=== PATIENT | male | born 1940 | race Caucasian/White ===

== ENCOUNTER → 2018-02-04 | Outpatient (CLI) | payer OTHER ==
[~2018-02-04] MED LIST: ACET-76 PO; AREDS 2 PO; ASPI-496 PO; CALC1CAP8 PO; CYAN50008 PO; MULT-224 PO; OMEP-110 PO; SIMV20TA3 PO; ZOLP5TAB6 PO
[2018-02-04 13:03] LABS: BASOPHILS # (AUTO) 0.02 x10^3/uL (0-0.1); BASOPHILS % (AUTO) 0 % (0-1); EOSINOPHILS # (AUTO) 0.08 x10^3/uL (0-0.4); EOSINOPHILS % (AUTO) 1 % (1-7); LYMPHOCYTES # (AUTO) 1.77 x10^3/uL (1-3.4); LYMPHOCYTES % (AUTO) 28 % (22-44); MD NO; MEAN CORPUSCULAR HEMOGLOBIN 32.2 pg (27.5-34.5); MEAN CORPUSCULAR VOLUME 94.6 fL (81-97); MEAN PLATELET VOLUME 8.7 fL (7.4-10.4); MONOCYTES # (AUTO) 0.76 x10^3/uL (0.2-0.8); MONOCYTES % (AUTO) 12 % (2-9); NEUTROPHILS # (AUTO) 3.81 x10^3/uL (1.8-6.8); NEUTROPHILS % (AUTO) 59 % (42-75); PLATELET COUNT 241 x10^3/uL (130-400); RED BLOOD COUNT 4.43 x10^6/uL (4.38-5.82); RED CELL DISTRIBUTION WIDTH 13.5 % (9.4-14.8)
[2018-02-04 13:09] LABS: INTERNATIONAL NORMALIZED RATIO 1.05 (0.93-1.1); PROTHROMBIN TIME 10.8 Seconds (9.6-11.5)
[2018-02-04 13:13] LABS: ALANINE AMINOTRANSFERASE 23 U/L (12-78); ALBUMIN 3.9 g/dL (3.4-5.0); ANION GAP 10 mmol/L (5-15); CALCIUM 8.8 mg/dL (8.5-10.1); CHLORIDE 108 mmol/L (98-107); CREATININE 1.05 mg/dL (0.7-1.3)
[2018-02-04 13:16] LABS: ALKALINE PHOSPHATASE 62 U/L (45-117); BILIRUBIN,TOTAL 0.8 mg/dL (0.2-1.0); TOTAL PROTEIN 7.8 g/dL (6.4-8.2)
== END ==
LOC: STAR 11:30
PROVIDERS: ATTEND Surgery
DX: Z01.818 Encounter for other preprocedural examination (principal)
CPT/HCPCS: 36415; 80053; 85025; 85610; 93005

== ENCOUNTER 2018-02-17 13:34 | Day surgery (SDC) | payer OTHER ==
[~2018-02-17] VITALS: Ht 172.7 cm; Wt 73.0 kg
[~2018-02-17 13:34] MED LIST changes: +BUPIVACAINE/PF 0.5% ONE; +CEFAZOLIN 1,000 MG ONE; +EPINEPHRINE 1 MG/ML, 1ML ONE
[2018-02-17] MEDS ORDERED: LACTATED RINGERS 1,000 ML IV SCH ×2 (13:55→19:00)
[2018-02-17] MEDS ORDERED: FENTANYL PF 250 MCG/5ML ONE (15:07)
[2018-02-17] MEDS ORDERED: MIDAZOLAM 1 MG/ML, 2ML ONE (15:07)
[2018-02-17] MEDS ORDERED: PROPOFOL 10 MG/ML, 20ML ONE (15:08)
[2018-02-17] MEDS ORDERED: ROCURONIUM 10 MG/ML,10ML ONE (15:09)
[2018-02-17] MEDS ORDERED: NEOSTIGMINE 1 MG/ML, 10ML ONE (15:09)
[2018-02-17] MEDS ORDERED: PROMETHAZINE 25 MG/ML, 1ML IV PRN (15:30)
[2018-02-17] MEDS ORDERED: LABETALOL 5MG/ML, 20ML IV PRN (15:30)
[2018-02-17] MEDS ORDERED: ACETAMINOPHEN 325 MG TABLET PO PRN (15:30)
[2018-02-17] MEDS ORDERED: morphine SULFATE 10 MG/ML, 1ML IV PRN (15:30)
[2018-02-17] MEDS ORDERED: HYDROmorphone 1 MG/ML, 1ML IV PRN (15:30)
[2018-02-17] MEDS ORDERED: ONDANSETRON 2MG/ML, 2ML IVPush PRN ×2 (15:30→19:00)
[2018-02-17] MEDS ORDERED: OXYcodone 5 MG/5 ML ORAL.SOL UDC PO PRN (15:30)
[2018-02-17] MEDS ORDERED: hydrALAzine 20 MG/ML, 1ML IV PRN (15:30)
[2018-02-17] MEDS ORDERED: PROMETHAZINE 12.5 MG SUPP PR PRN (15:30)
[2018-02-17] MEDS ORDERED: FENTANYL PF 100 MCG/2ML IV PRN (15:30)
[2018-02-17] MEDS ORDERED: MEPERIDINE/PF 25MG/0.5ML IVPush PRN (15:30)
[2018-02-17] MEDS ORDERED: BUPIVACAINE/PF 0.5% INFIL ONE ×2 (15:34)
[2018-02-17] MEDS ORDERED: ONDANSETRON ODT 8 MG ONE ×2 (16:43)
[2018-02-17] MEDS ORDERED: DEXAMETHASONE 4 MG/ML, 1ML ONE ×2 (16:44)
[2018-02-17] MEDS ORDERED: GLYCOPYRROLATE 0.4 MG/2 ML, 2ML ONE (17:26)
[2018-02-17] MEDS ORDERED: OXYcodone 5 MG/5 ML ORAL.SOL UDC ONE (17:54)
[2018-02-17] MEDS ORDERED: HYDROcodone/APAP 7.5-325MG/15ML UDC PO PRN (19:00)
[2018-02-17] MEDS ORDERED: MORPHINE SULFATE 4 MG/ML, 1ML IVPush PRN (19:00)
[2018-02-17] MEDS ORDERED: ZOLPIDEM 5MG TABLET PO PRN (19:00)
[2018-02-17] MEDS ORDERED: ACETAMINOPHEN 500 MG TABLET PO PRN (19:00)
[2018-02-17] MEDS ORDERED: DIPHENHYDRAMINE 50 MG/ML, 1ML IVPush PRN (19:00)
[2018-02-17 19:15] VITALS: BP 120/87
[2018-02-17] MEDS ORDERED: SIMVASTATIN 10 MG TABLET PO SCH (21:00)
[2018-02-18] MEDS ORDERED: OMEPRAZOLE 20 MG CAPSULE.DR PO SCH (07:30)
[2018-02-18] MEDS ORDERED: CYANOCOBALAMIN 1,000 MCG TABLET PO SCH (09:00)
[2018-02-18] MEDS ORDERED: MULTIVITAMIN 1 TABLET PO SCH (09:00)
[2018-02-18] MEDS ORDERED: ASPIRIN 81 MG TABLET EC PO SCH (09:00)
== END 2018-02-17 20:33 | disposition home or self-care (01) ==
LOC: OR 13:34 → 4NOR 18:22 → OR 20:33
PROVIDERS: ATTEND Surgery
DX: K40.90 Unilateral inguinal hernia, without obstruction or gangrene, not specified as recurrent (principal); Z87.39 Personal history of other diseases of the musculoskeletal system and connective tissue; K21.9 Gastro-esophageal reflux disease without esophagitis; E78.00 Pure hypercholesterolemia, unspecified; Z85.828 Personal history of other malignant neoplasm of skin; Z86.73 Personal history of transient ischemic attack (TIA), and cerebral infarction without residual deficits; Z98.890 Other specified postprocedural states; Z98.52 Vasectomy status
CPT/HCPCS: 49505; C1781; J0171; J0690; J1100; J2250; J2704; J2710; J3010; J3490; Q0162